=== PATIENT | male | born 1995 | race Two or more races ===

== ENCOUNTER 2024-01-17 20:53 | Emergency (ER) | payer OTHER ==
[~2024-01-17] VITALS: Ht 167.6 cm; Wt 76.0 kg
[2024-01-18] MEDS ORDERED: BENZ200C64 PO (01:33)
[2024-01-18] MEDS ORDERED: AUG875T PO (01:33)
[2024-01-18] MEDS ORDERED: ALBU108A5 IN (01:33)
[2024-01-18] MEDS ORDERED: IBUP-1454 PO (01:33)
[2024-01-18] MEDS ORDERED: FLUT1SPR5 (01:33)
[2024-01-18] MEDS ORDERED: PRED20TA2 PO (01:33)
[2024-01-18] MEDS: IPRATROPIUM BROM 0.5 MG/2.5ML INH SOL NEB ONE (01:51)
[2024-01-18] MEDS: ALBUTEROL SULF 2.5 MG/0.5ML(0.5%) NEB SOLN NEB ONE (01:51)
[2024-01-18] MEDS: IBUPROFEN 800 MG TAB PO ONE (03:02)
[2024-01-18] MEDS: ONDANSETRON ODT 4 MG TAB PO ONE (03:03)
[2024-01-18] MEDS: DexAMETHasone SOD PHOS 10MG/1ML VIAL INJ IM ONE (03:04)
[2024-01-18] MEDS: cefTRIAXone SOD 1,000 MG VL IM ONE (03:05)
[2024-01-18 03:27] VITALS: BP 127/61; PULSE 86; RESP 18; TEMP 97.9
[2024-01-18 06:37] VITALS: O2SAT 97
== END 2024-01-18 06:46 | disposition home or self-care (01) ==
LOC: ER 20:53
DX: J01.10 Acute frontal sinusitis, unspecified (principal); J20.9 Acute bronchitis, unspecified; R51.9 Headache, unspecified; Z79.899 Other long term (current) drug therapy
CPT/HCPCS: 70450; 94640; 96372; 99285; J0696; J1100; J7644; Q0162